=== PATIENT | male | born 1935 | race Caucasian/White ===

== ENCOUNTER 2019-01-16 14:34 | Outpatient (CLI) | payer MEDICARE | END 2019-01-16 23:59 | disposition home or self-care (01) | LOC: STAR 14:34 | PROVIDERS: ATTEND Urology | DX: Z01.818 Encounter for other preprocedural examination (principal); N40.0 Benign prostatic hyperplasia without lower urinary tract symptoms; R94.31 Abnormal electrocardiogram [ECG] [EKG] | CPT/HCPCS: 36415; 80053; 81001; 85025; 87086; 93005 ==